=== PATIENT | female | born 1970 | race Caucasian/White ===

== ENCOUNTER 2020-06-19 04:46 | Day surgery (SDC) | payer OTHER ==
[2020-06-14 16:47] VITALS: BMI 25.6
[2020-06-19] MEDS ORDERED: CEFAZOLIN 2 GM/D5W 2 GM/50 ML ML IVPB ONE (06:30)
[2020-06-19] MEDS ORDERED: PHENAZOPYRIDINE HCL 100 MG TABLET (FP) PO ONE (06:30)
[2020-06-19] MEDS ORDERED: PHENAZOPYRIDINE HCL 100 MG TABLET (FP) ONE (06:42)
[2020-06-19] MEDS ORDERED: ceFAZolin SODIUM 1 GM VIAL ONE (06:43)
[2020-06-19] MEDS ORDERED: SUCCINYLCHOLINE CHLORIDE 200 MG/10 ML SYRINGE ONE (07:37)
[2020-06-19] MEDS ORDERED: MIDAZOLAM HCL 2 MG/2 ML SINGLE DOSE VIAL ONE (07:37)
[2020-06-19] MEDS ORDERED: BUPIVACAINE HCL 100 ML ONE (07:37)
[2020-06-19] MEDS ORDERED: PROPOFOL 20 ML ONE ×6 (07:37→09:19)
[2020-06-19] MEDS ORDERED: ROCURONIUM BROMIDE 50 MG/5 ML SYRINGE ONE (07:37)
[2020-06-19] MEDS ORDERED: BUPIVACAINE LIPOSOME/PF (EXPAREL) 266 MG/20 ML VIAL ONE (07:37)
[2020-06-19] MEDS ORDERED: ceFAZolin SODIUM 1 GM VIAL IVPB ONE (08:15)
[2020-06-19] MEDS ORDERED: LIDOCAINE HCL/PF 2% SDV 5ML VIAL ONE (08:16)
[2020-06-19] MEDS ORDERED: DEXAMETHASONE SOD PHOSPHATE 4 MG/1 ML VIAL ONE (08:28)
[2020-06-19] MEDS ORDERED: ACETAMINOPHEN INJECTION 100 ML IVPB ONE (09:04)
[2020-06-19] MEDS ORDERED: KETOROLAC TROMETHAMINE 30 MG/1 ML VIAL ONE (09:54)
[2020-06-19] MEDS ORDERED: DOCUSATE SODIUM 100 MG CAPSULE (FP) PO PRN (10:37)
[2020-06-19] MEDS ORDERED: IBUPROFEN 800 MG/8 ML IJ IVPB PRN (10:37)
[2020-06-19] MEDS ORDERED: ONDANSETRON 4 MG/2 ML VIAL IVPUSH PRN ×2 (10:37)
[2020-06-19] MEDS ORDERED: oxyCODONE HCL 5 MG TABLET PO PRN ×3 (10:37)
[2020-06-19] MEDS ORDERED: SODIUM CHLORIDE 1,000 ML IV SCH (10:45)
[2020-06-19] MEDS ORDERED: LACTATED RINGERS SOLUTION 1,000 ML IV SCH (10:45)
[2020-06-19] MEDS ORDERED: ACETAMINOPHEN 325 MG TABLET (FP) PO SCH (13:00)
[2020-06-19] MEDS: CEFAZOLIN 1 GM/D5W 1 GM/50 ML BAG IVPB SCH (17:07)
[2020-06-19] MEDS: ACETAMINOPHEN 500 MG TABLET (FP) PO SCH ×2 (17:07→21:18)
[2020-06-19] MEDS: SIMETHICONE 80 MG TAB.CHEW (FP) PO PRN ×2 (17:08→21:53)
[2020-06-19] MEDS ORDERED: IBUPROFEN 800 MG/8 ML IJ IVPB SCH (17:30)
[2020-06-19] MEDS ORDERED: CEFAZOLIN 1 GM/D5W 1 GM/50 ML BAG IVPB SCH (18:00)
[2020-06-19] MEDS: IBUPROFEN 800 MG/8 ML IJ IVPB SCH (18:31)
[2020-06-19 20:40] LABS: HEMATOCRIT 34.4 % (32.4-45.2); HEMOGLOBIN 10.9 GM/dL (10.7-15.3); MCH 25.3 pg (25.7-33.7); MCHC 31.6 g/dl (32.0-36.0); MEAN PLT VOLUME 9.4 fl (7.5-11.1); PLATELET COUNT 247 K/MM3 (134-434); RDW 15.9 % (11.6-15.6); WHITE BLOOD COUNT 13.1 K/mm3 (4.0-10.0)
[2020-06-19 20:59] LABS: CALCIUM 8.5 mg/dL (8.5-10.1)
[2020-06-19 21:00] LABS: BLOOD UREA NITROGEN 8.6 mg/dL (7-18)
[2020-06-19 21:03] LABS: CREATININE 0.8 mg/dL (0.55-1.3)
[2020-06-20] MEDS: IBUPROFEN 800 MG/8 ML IJ IVPB SCH ×2 (02:24→10:34)
[2020-06-20] MEDS: ACETAMINOPHEN 500 MG TABLET (FP) PO SCH ×2 (02:25→09:10)
[2020-06-20 08:40] VITALS: BP 123/77; PULSE 78; TEMP 98.2
[2020-06-20] MEDS: CEFAZOLIN 1 GM/D5W 1 GM/50 ML BAG IVPB SCH ×2 (09:00)
[2020-06-20] MEDS: SIMETHICONE 80 MG TAB.CHEW (FP) PO PRN (09:09)
[2020-06-20 09:27] LABS: HEMATOCRIT 32.6 % (32.4-45.2); HEMOGLOBIN 10.6 GM/dL (10.7-15.3); MCH 25.8 pg (25.7-33.7); MCHC 32.3 g/dl (32.0-36.0); MEAN CELL VOLUME 79.6 fl (80-96); MEAN PLT VOLUME 9.5 fl (7.5-11.1); PLATELET COUNT 238 K/MM3 (134-434); RDW 15.7 % (11.6-15.6); WHITE BLOOD COUNT 10.8 K/mm3 (4.0-10.0)
[2020-06-20 09:44] LABS: POTASSIUM 4.2 mmol/L (3.5-5.1)
[2020-06-20 09:59] LABS: BLOOD UREA NITROGEN 6.7 mg/dL (7-18); CALCIUM 8.6 mg/dL (8.5-10.1)
[2020-06-20] MEDS ORDERED: ENOXAPARIN NA (PORCINE) 40 MG/0.4 ML DISP.SYRIN SQ SCH (10:00)
[2020-06-20 10:03] LABS: CREATININE 0.6 mg/dL (0.55-1.3)
== END 2020-06-20 12:55 | disposition home or self-care (01) ==
LOC: JASUSAT 04:46 → J3W 15:19 → JASUSAT 06-20 12:55
PROVIDERS: ATTEND Obstetrics & Gynecology
PROC: 8E0W4CZ Robotic Assisted Procedure of Trunk Region, Percutaneous Endoscopic Approach (ICD-10-PCS; 2020-06-19)
PROC: 0UT9FZZ Resection of Uterus, Via Natural or Artificial Opening With Percutaneous Endoscopic Assistance (ICD-10-PCS; principal; 2020-06-19 07:30)
PROC: 0UT7FZZ Resection of Bilateral Fallopian Tubes, Via Natural or Artificial Opening With Percutaneous Endoscopic Assistance (ICD-10-PCS; 2020-06-19 07:30)
DX: D25.1 Intramural leiomyoma of uterus (principal); N88.8 Other specified noninflammatory disorders of cervix uteri; N72 Inflammatory disease of cervix uteri
CPT/HCPCS: 58552; S2900; 36415; 80048; 81025; 85027; 86850; 86900; 86901; 88302-TC; 88307-TC; 94010; 94760; J0131